=== PATIENT | female | born 1990 | race Caucasian/White ===

== ENCOUNTER → 2018-12-29 | Outpatient (CLI) | payer MEDICAID ==
[~2018-12-29] MED LIST: GADOBUTROL 10 ML VIAL IVP ONE
== END ==
LOC: FIMAGING 14:11
PROVIDERS: ATTEND Physician Assistant Medical
DX: R41.3 Other amnesia (principal); Z80.9 Family history of malignant neoplasm, unspecified
CPT/HCPCS: A9585

== ENCOUNTER → 2018-12-30 | Outpatient (CLI) | payer MEDICAID ==
--- NOTE | 2018-12-31 12:18 | CPEEG ---
[f rep st] ELECTROENCEPHALOGRAM DATE OF STUDY: INTERPRETATION: Normal EEG during wakefulness and sleep. There were no potentially epileptogenic ab normalities present during the awake or sleep recordings. REPORT: This EEG contains 10 Hz alpha activity of the posterior head regions. There was no abnormal activation at rest, during photic stimulation, or hyperventilation. The patient became drowsy and f ell asleep during the study. There was no abnormal activation during drowsiness, sleep, or during ti mes of arousal. /[id number]/MODL
== END ==
LOC: FCPNEURO 14:47
PROVIDERS: ATTEND Psychiatry & Neurology Neurology
DX: R41.3 Other amnesia (principal)